=== PATIENT | female | born 2000 | race Caucasian/White ===

== ENCOUNTER 2022-05-30 20:22 | Emergency (ER) | payer OTHER ==
[~2022-05-30] VITALS: Ht 154.9 cm; Wt 44.0 kg
[2022-05-30] MEDS ORDERED: ZOFRAN8 MG PO (23:29)
[2022-05-30] MEDS ORDERED: TUSNEL LIQUID178 ML PO (23:29)
[2022-05-30] MEDS ORDERED: ZITHROMAX500 MG PO (23:29)
== END 2022-05-30 23:50 | disposition home or self-care (01) ==
LOC: ER 20:22
DX: U07.1 COVID-19 (principal); Z88.8 Allergy status to other drugs, medicaments and biological substances; Z91.013 Allergy to seafood